=== PATIENT | male | born 1940 | race Caucasian/White ===

== ENCOUNTER 2017-08-31 10:33 | Emergency (ER) ==
[2017-08-31 10:37] VITALS: BP 225/101; TEMP 98; BMI 37.5
[2017-08-31] MEDS ORDERED: TENIVAC IM ONE (10:44)
[2017-08-31] MEDS ORDERED: LIDOCAINE HCL 1% SDV SUBCUT STA (10:44)
[2017-08-31] MEDS ORDERED: KEFLEX PO STA (10:58)
[2017-08-31] MEDS ORDERED: AUGMENTIN 875-125 MG TAB PO STA (10:59)
--- NOTE | 2017-08-31 11:25 | ED.PDOC ---
General ED Provider: Dr. FELIZ CHAHAL-ER Chief Complaint: Bite Stated Complaint: i was bitten by a strange dog Time Seen by Physician: 10:40 Mode of Arrival: Walk-In Information Source: Patient Exam Limitations: No limitations Primary Care Provider: FELIZ CHAHAL Nursing and Triage Documentation Reviewed and Agree: Yes Reviewed sepsis parameters & appropriate labs ordered?: Yes System Inflammatory Response Syndrome: Not Applicable Sepsis Protocol: For patient's 13 years and over: Temp is 96.8 and below OR 101 and greater Pulse >90 BPM Resp >20/minute Acutely Altered Mental Status Are patient's symptoms suggestive of a new infection, such as: -Pneumonia -Skin, Soft Tissue -Endocarditis -UTI -Bone, Joint Infection -Implantable Device -Acute Abdominal Infection -Wound Infection -Meningitis -Blood Stream Catheter Infection -Unknown Skin Complaint Exam - Laceration/Abrasion/Hand Complaint/Exam Location of Injury: Right, Digit #2 Mechanism of Injury: Laceration, Blunt trauma Onset/Duration: one hour Symptoms Are: Still present Initial Severity: Mild Current Severity: Mild Aggravating: Movement Alleviating: Compression Associated Signs and Symptoms: Denies: Fever, Chills, Erythema, Numbness, Tingling Differential Diagnoses: Bite Injury, Laceration, Puncture Wound Review of Systems - Review Of Systems Constitutional: Reports: No symptoms Eyes: Reports: No symptoms Ears, Nose, Mouth, Throat: Reports: No symptoms Respiratory: Reports: No symptoms Cardiac: Reports: No symptoms GI: Reports: No symptoms : Reports: No symptoms Musculoskeletal: Reports: No symptoms Skin: Reports: No symptoms Neurological: Reports: No symptoms Endocrine: Reports: Intolerance to heat Hematologic/Lymphatic: Reports: No symptoms All Other Systems: Reviewed and Negative Past Medical History - Past Medical History Previously Healthy: No Endocrine: Reports: Unknown Cardiovascular: Reports: Unknown Respiratory: Reports: Unknown Hematological: Reports: Unknown Gastrointestinal: Reports: Unknown Genitourinary: Reports: Unknown Neuro/Psych: Reports: Unknown Musculoskeletal: Reports: Unknown Cancer: Reports: Unknown - Surgical History General Surgical History: Reports: Unknown - Family History Family History: Reports: Unknown - Social History Smoking Status: Never smoker Hx Substance Use: No Alcohol Screening: None - Immunizations Tetanus Shot up to Date: No Physical Exam - Physical Exam Appearance: Well-appearing, No pain distress, Well-nourished Pain Distress: Mild Eyes: TOY, EOMI, Conjunctiva clear ENT: Ears normal, Nose normal, Oropharynx normal Neck: Supple Respiratory: Airway patent Cardiovascular: RRR GI/: Soft, Nontender, No masses, Bowel sounds normal, No Organomegaly Musculoskeletal: Normal strength Skin: Warm, Dry, Normal color Neurological: Sensation intact, Motor intact, Reflexes intact, Cranial nerves intact, Alert, Oriented Psychiatric: Affect appropriate, Mood appropriate, Anxious Critical Care Note - Critical Care Note Total Time (mins): 0 Course - Course Orders, Labs, Meds: Orders Category Date Time Status Amoxicillin/Potassium Clav [Augmentin 875-125 mg Tab] MEDS 08/31/17 10:59 Discontinued 1 tab PO ONCE STA Lidocaine HCl/Pf [Lidocaine HCl 1% Sdv] MEDS 08/31/17 10:44 Discontinued 5 ml SUBCUT ONCE STA Rabies Immune Globulin/Pf [Hyperrab S-D 2 ml Vial] MEDS 08/31/17 12:49 Discontinued 300 unit INFIL ONCE STA Rabies Immune Globulin/Pf [Hyperrab S-D 2 ml Vial] MEDS 08/31/17 12:51 Discontinued 300 unit INFIL ONCE STA Rabies Vaccine (Pcec)/Pf [Rabavert Rabies Vaccine] MEDS 08/31/17 12:51 Discontinued 2.5 unit IM .ONCE ONE Tetanus and Diphtheria Tox/Pf [Tenivac] MEDS 08/31/17 10:44 Discontinued 0.5 ml IM .ONCE ONE Medications Discontinued Medications Generic Name Dose Route Start Last Admin Trade Name Freq PRN Reason Stop Dose Admin Amoxicillin/Clavulanate Potassium 1 tab 08/31/17 10:59 08/31/17 11:40 Augmentin 875-125 Mg Tab PO 08/31/17 11:00 1 tab ONCE STA Administration Lidocaine HCl 5 ml 08/31/17 10:44 08/31/17 11:54 Lidocaine Hcl 1% Sdv SUBCUT 08/31/17 10:45 5 ml ONCE STA Administration Rabies Immune Globulin 300 unit 08/31/17 12:49 Hyperrab S-D 2 Ml Vial INFIL 08/31/17 12:50 ONCE STA Rabies Immune Globulin 300 unit 08/31/17 12:51 Hyperrab S-D 2 Ml Vial INFIL 08/31/17 12:52 ONCE STA Rabies Vaccine Inactivated 2.5 unit 08/31/17 12:51 Rabavert Rabies Vaccine IM 08/31/17 12:52 .ONCE ONE Tetanus/Diphtheria Toxoids Adsorbed 0.5 ml 08/31/17 10:44 08/31/17 11:08 Tenivac IM 08/31/17 10:45 0.5 ml .ONCE ONE Administration Vital Signs: Temp Pulse Resp BP Pulse Ox 08/31/17 10:34 98.0 F 69 18 225/101 H 94 L Departure - Departure Time of Disposition: 11:24 Disposition: HOME SELF-CARE Discharge Problem: Dog bite Qualifiers: Encounter type: initial encounter Qualified Code(s): W54.0XXA - Bitten by dog, initial encounter Instructions: Rabies Vaccine (By injection), Rabies Immune Globulin (By injection), Animal Bite (ED), Rabies Vaccine (ED) Condition: Good Pt referred to PMD for follow-up: Yes IPMP verified?: No Additional Instructions: augmentin 875mg bid x 7days--keep wound clean and dry--see me friday for follow up and return here friday for vaccine series and also day 7, day 14 and days 28 Allergies/Adverse Reactions: Allergies No Known Allergies Allergy (Unverified 08/31/17 10:37) Home Medications: Ambulatory Orders Simvastatin [Zocor] 40 mg PO DAILY 08/31/17 Disposition Discussed With: Patient, Family
[2017-08-31] MEDS ORDERED: RABIES IMMUNE GLOBULIN INFIL STA ×2 (12:49→12:51)
[2017-08-31] MEDS ORDERED: [UNRECOGNIZED DRUG - OTHER] IM ONE (12:51)
[2017-08-31] MEDS ORDERED: RABIES VACCINE IM ONE (12:51)
== END 2017-08-31 11:47 | disposition home or self-care (01) ==
LOC: ED 10:33
DX: S61.451A Open bite of right hand, initial encounter (principal); W54.0XXA Bitten by dog, initial encounter
CPT/HCPCS: 90471; 90675; 90714; 96372; 99284

== ENCOUNTER 2017-09-03 10:31 | Outpatient (CLI) ==
[2017-09-03] MEDS ORDERED: [UNRECOGNIZED DRUG - OTHER] IM ONE (10:46)
[2017-09-03] MEDS ORDERED: RABIES VACCINE IM ONE (10:46)
[2017-09-03] MEDS ORDERED: RABIES IMMUNE GLOBULIN IM STA (10:48)
[2017-09-03] MEDS ORDERED: [UNRECOGNIZED DRUG - OTHER] IM STA (10:48)
[2017-09-03 11:05] VITALS: BP 143/76; TEMP 98.2
== END 2017-09-03 11:39 | disposition home or self-care (01) ==
LOC: OPMED 10:31
PROVIDERS: ATTEND Family Medicine
DX: Z20.3 Contact with and (suspected) exposure to rabies (principal)
CPT/HCPCS: 96372

== ENCOUNTER 2017-09-07 12:50 | Outpatient (CLI) ==
[2017-09-07] MEDS ORDERED: RABIES VACCINE IM ONE (13:06)
[2017-09-07] MEDS ORDERED: [UNRECOGNIZED DRUG - OTHER] IM ONE (13:06)
[2017-09-07 13:32] VITALS: BP 154/86; TEMP 98.1
== END 2017-09-07 12:51 | disposition home or self-care (01) ==
LOC: OPMED 12:50
PROVIDERS: ATTEND Family Medicine
DX: Z20.3 Contact with and (suspected) exposure to rabies (principal)
CPT/HCPCS: 96372

== ENCOUNTER 2017-09-14 10:59 | Outpatient (CLI) ==
[2017-09-14] MEDS ORDERED: RABIES VACCINE IM ONE (11:07)
[2017-09-14] MEDS ORDERED: [UNRECOGNIZED DRUG - OTHER] IM ONE (11:07)
== END 2017-09-14 11:00 | disposition home or self-care (01) ==
LOC: OPMED 10:59
PROVIDERS: ATTEND Family Medicine
DX: Z20.3 Contact with and (suspected) exposure to rabies (principal)
CPT/HCPCS: 96372

== ENCOUNTER 2022-07-15 12:28 | Inpatient (IN) ==
[2022-07-15] MEDS ORDERED: DUONEB NEB STA (12:44)
--- NOTE | 2022-07-15 12:47 | ED.PDOC ---
General ED Provider: Dr. PAIGE DOUGLAS MD Chief Complaint: Shortness of Air Stated Complaint: Patient presents with cough productive of some brown colored sputum and dyspnea for several days. Denies fever, chills, chest pain, edema, palpitations. Time Seen by Provider: 07/15/22 12:44 Mode of Arrival: Walk-In Information Source: Patient Primary Care Provider: FELIZ CHAHAL Nursing and Triage Documentation Reviewed and Agree: Yes Does patient meet sepsis criteria?: No System Inflammatory Response Syndrome: Not Applicable Sepsis Protocol: For patient's 13 years and over: Temp is 96.8 and below OR 101 and greater Pulse >90 BPM Resp >20/minute Acutely Altered Mental Status Are patient's symptoms suggestive of a new infection, such as: -Pneumonia -Skin, Soft Tissue -Endocarditis -UTI -Bone, Joint Infection -Implantable Device -Acute Abdominal Infection -Wound Infection -Meningitis -Blood Stream Catheter Infection -Unknown Review of Systems Review Of Systems Constitutional: Reports No symptoms Eyes: Reports No symptoms Ears, Nose, Mouth, Throat: Reports No symptoms Respiratory: Reports Cough, Orthopnea and Short of air Cardiac: Reports No symptoms GI: Reports No symptoms : Reports No symptoms Musculoskeletal: Reports No symptoms Skin: Reports No symptoms Neurological: Reports No symptoms Endocrine: Reports No symptoms Hematologic/Lymphatic: Reports No symptoms All Other Systems: Reviewed and Negative Physical Exam Physical Exam Appearance: Reports Ill-appearing, No pain distress, Obese and Other (Patient is tachypneic and using accessory respiratory muscles.) Ill-appearing: Moderate Pain Distress: None Eyes: Reports Conjunctiva clear ENT: Reports Nose normal and Oropharynx normal Neck: Supple (No JVD) Respiratory: Reports Airway patent, Breath sounds clear, Breath sounds equal and Breath sounds diminished Cardiovascular: Reports RRR, No rub and No murmur GI/: Reports Soft, Nontender, No masses, Bowel sounds normal and No Organomegaly Musculoskeletal: Reports No edema Skin: Reports Warm, Dry and Normal color Neurological: Reports Alert and Oriented Psychiatric: Reports Affect appropriate, Mood appropriate and Anxious Interpretation Radiology Interpretation Radiology Interpretation By: Radiologist Exam Interpreted: Portable CXR (interstitial opacities and ground glass appearance bilaterally, mild cardiomegaly) EKG Interpretation Time of EKG #1: 13:17 Rate: Normal Rhythm: Other (atrial fibrillation) Ectopy: PVCs [place]: NL ST Segment: Normal Interpretation: atrial fibrillation with occasional PVCs Physician Notification Case Discussed Physician Notified: Dr Chahal Time of Notification: 14:26 Comments: Patient will be transferred to [facility] where his outsole molder, Dr Valentin, is located. If no beds available, then patient will be admitted here. Critical Care Note Critical Care Note Total Critical Care Time (mins): 0 Course Course Hematology/Chemistry: 07/15/22 12:56 07/15/22 12:56 Orders, Labs, Meds: Lab Review 07/15/22 07/15/22 07/15/22 12:12 12:52 12:56 WBC 8.45 RBC 3.89 L Hgb 12.6 L Hct 40.8 L MCV 104.9 H MCH 32.4 H MCHC 30.9 L RDW Coeff of Carli 15.3 H Plt Count 177 Immature Gran % (Auto) 0.6 Neut % (Auto) 79.3 H Lymph % (Auto) 9.5 L Colbert % (Auto) 8.2 Eos % (Auto) 1.8 Baso % (Auto) 0.6 Neut # (Auto) 6.7 Lymph # (Auto) 0.8 Colbert # (Auto) 0.7 Eos # (Auto) 0.2 Baso # (Auto) 0.1 Immature Gran # (Auto) 0.1 Puncture Site Rrad Base Excess 5.3 H O2 Saturation 92.2 L ABG pH 7.42 ABG pCO2 46.0 H ABG pO2 63.0 L ABG HCO3 29.8 H ABG Total CO2 31.2 H Tyrell Test Pos Hemoglobin 0.5 Oxyhemoglobin 90.1 L Carboxyhemoglobin 3.0 H Total Hemoglobin 13.4 FiO2 % 21.0 Sodium Potassium Chloride Carbon Dioxide Anion Gap BUN Creatinine Estimated GFR (MDRD) BUN/Creatinine Ratio Glucose Calcium Total Bilirubin AST ALT Alkaline Phosphatase Troponin I NT-Pro-B Natriuret Pep 3180 H Total Protein Albumin Globulin Albumin/Globulin Ratio Influ A Molecular Assay Influ B Molecular Assay SARS CoV-2 RNA Rapid COSMO 07/15/22 07/15/22 07/15/22 12:56 13:25 13:25 WBC RBC Hgb Hct MCV MCH MCHC RDW Coeff of Carli Plt Count Immature Gran % (Auto) Neut % (Auto) Lymph % (Auto) Colbert % (Auto) Eos % (Auto) Baso % (Auto) Neut # (Auto) Lymph # (Auto) Colbert # (Auto) Eos # (Auto) Baso # (Auto) Immature Gran # (Auto) Puncture Site Base Excess O2 Saturation ABG pH ABG pCO2 ABG pO2 ABG HCO3 ABG Total CO2 Tyrell Test Hemoglobin Oxyhemoglobin Carboxyhemoglobin Total Hemoglobin FiO2 % Sodium 141.7 Potassium 3.84 Chloride 107.1 H Carbon Dioxide 29.2 Anion Gap 9.24 BUN 11.9 Creatinine 1.11 H Estimated GFR (MDRD) 64.00 BUN/Creatinine Ratio 10.72 Glucose 121.2 H Calcium 8.68 Total Bilirubin 2.67 H AST 22.5 ALT 17.7 Alkaline Phosphatase 129.4 H Troponin I < 0.012 NT-Pro-B Natriuret Pep Total Protein 7.11 Albumin 4.04 Globulin 3.07 Albumin/Globulin Ratio 1.31 Influ A Molecular Assay Negative by naat Influ B Molecular Assay Negative by naat SARS CoV-2 RNA Rapid COSMO Negative Orders Category Date Time Status ABG DRAW REQUEST Stat CARDIO 07/15/22 12:42 Completed EKG-(ED ONLY) Stat CARDIO 07/15/22 12:42 Completed NEBULIZER TREATMENT Stat CARDIO 07/15/22 12:44 Completed Saline Lock [ED IV/MEDIPORT/POWERPORT] .ONCE EMERGENCY 07/15/22 14:00 Active ABG COOX Stat LAB 07/15/22 12:12 Completed CBC W/ AUTO DIFF Stat LAB 07/15/22 12:56 Completed CMP [COMPREHENSIVE METABOLIC PANEL] Stat LAB 07/15/22 12:56 Completed COVID [SARS COV-2 RNA RAPID COSMO] Stat LAB 07/15/22 13:25 Completed FLU A & B MOLECULAR [FLU A/B MOLECULAR] Stat LAB 07/15/22 13:25 Completed NT-PROBNP(ED) Stat LAB 07/15/22 12:52 Completed TROPONIN I Stat LAB 07/15/22 12:56 Completed 0.9 % Sodium Chloride [Saline Flush] MEDS 07/15/22 14:00 Active 1 syr IVF PRN PRN Furosemide [Lasix] MEDS 07/15/22 14:00 Discontinued 80 mg IVP ONCE STA Ipratropium/Albuterol Neb [Duoneb] MEDS 07/15/22 12:44 Discontinued 3 ml NEB ONCE STA CXR [CHEST, 1V AP ONLY] Stat RADS 07/15/22 12:42 Completed Medications Generic Name Dose Route Start Last Admin Trade Name Freq PRN Reason Stop Dose Admin Sodium Chloride 1 syr 07/15/22 14:00 0.9% Sodium Chloride 10 Ml Disp.Syrin IVF PRN PRN To flush IV Discontinued Medications Generic Name Dose Route Start Last Admin Trade Name Freq PRN Reason Stop Dose Admin Albuterol/Ipratropium 3 ml 07/15/22 12:44 07/15/22 13:00 Ipratropium/Albuterol Vial.Neb NEB 07/15/22 12:45 3 ml ONCE STA Administration Furosemide 80 mg 07/15/22 14:00 07/15/22 14:10 Furosemide Inj 100 Mg/10 Ml Vial IVP 07/15/22 14:01 80 mg ONCE STA Administration Vital Signs: Temp Pulse Resp BP Pulse Ox 07/15/22 12:28 98.4 F 98 22 H 188/48 H 86 L Discharge Plan Discharge Patient Disposition: ADMITTED INPATIENT Discharge Problem: Acute congestive heart failure, Coronary artery disease, Atrial fibrillation, Elevated bilirubin, Elevated alkaline phosphatase level, Macrocytic anemia Prescriptions: No Action simvastatin 40 MG tablet 40 mg PO DAILY Xarelto 20 mg Tablet 20 mg PO DAILY Rx Instructions: must administer with evening meal Did you review [place] [employer] for ALL controlled substances?: Not Applicable ED Provider: PAIGE DOUGLAS Condition: Fair Physician Progress Note: []
[2022-07-15 12:55] LABS: ABG O2 HGB 90.1 % (95-100); ABG PH 7.42 (7.35-7.45); BEecf 5.3 (-2.0-3.0); HCO3 29.8 (21-28); MetHb 0.5 (0-1.5); TCO2 31.2 (19-24); sO2 92.2 % (94-98); tHb 13.4 g/dl (11.7-17.4)
[2022-07-15 13:02] LABS: BASOPHILS # (AUTO) 0.1 K/uL (0-0.2); BASOPHILS % (AUTO) 0.6 % (0.0-3.0); EOSINOPHILS # (AUTO) 0.2 K/ul (0.0-0.7); EOSINOPHILS % (AUTO) 1.8 % (0.0-7.0); HEMATOCRIT 40.8 % (42.0-52.0); HEMOGLOBIN 12.6 g/dl (14.0-18.0); IMMATURE GRANULOCYTE # (AUTO) 0.1 (0.0-1.0); IMMATURE GRANULOCYTE % (AUTO) 0.6 % (0.0-5.0); LYMPHOCYTES # (AUTO) 0.8 K/uL (0.60-3.4); LYMPHOCYTES % (AUTO) 9.5 (10.0-50.0); MEAN CORPUSCULAR HEMOGLOBIN 32.4 pg (27.0-31.0); MEAN CORPUSCULAR HGB CONC 30.9 (31.8-35.4); MEAN CORPUSCULAR VOLUME 104.9 fl (80.0-94.0); MONOCYTES # (AUTO) 0.7 K/uL (0.4-2.0); MONOCYTES % (AUTO) 8.2 (0-10); NEUTROPHILS # (AUTO) 6.7 K/ul (2.0-6.9); NEUTROPHILS % (AUTO) 79.3 % (42.2-75.2); PLATELET COUNT 177 10^3/uL (140-440); RDW COEFFICIENT OF VARIATION 15.3 % (11.6-14.8); RED BLOOD COUNT 3.89 10^6/ul (4.70-6.10); WHITE BLOOD COUNT 8.45 K/ul (4.2-10.2)
--- NOTE | 2022-07-15 13:03 | DI ---
EXAM: SINGLE VIEW OF THE CHEST HISTORY: Dyspnea. COMPARISON: None FINDINGS: Cardiomediastinal silhouette is mildly enlarged. There is no pneumothorax with minimal ubaldo nting. There are interstitial and ground-glass opacities in the lungs. There is no consolidation. There is minimal degenerative change IMPRESSION: Heart is mildly enlarged with interstitial opacities that may represent chronic process versus atypical inflammation versus vascular congestion.
[2022-07-15 13:15] LABS: ALANINE AMINOTRANSFERASE 17.7 U/L (0-50); ALBUMIN 4.04 g/dL (3.5-5.0); ALKALINE PHOSPHATASE 129.4 U/L (56-119); ASPARTATE AMINO TRANSFERASE 22.5 U/L (17-59); BILIRUBIN,TOTAL 2.67 mg/dL (0.2-1.3); BLOOD UREA NITROGEN 11.9 mg/dL (9-20); CALCIUM 8.68 mg/dL (8.4-10.2); CARBON DIOXIDE 29.2 mmol/L (22-30.0); CHLORIDE 107.1 mmol/L (98-107); CREATININE 1.11 mg/dL (0.60-1.10); GLUCOSE 121.2 mg/dL (74-106); POTASSIUM 3.84 mmol/L (3.5-5.1); SODIUM 141.7 mmol/L (134.5-145); TOTAL PROTEIN 7.11 g/dL (6.3-8.2)
[2022-07-15 13:30] LABS: TROPONIN I < 0.012 ng/ml (0.0000-0.120)
[2022-07-15 13:56] LABS: MOLECULAR FLU A NEGATIVE BY NAAT (NEGATIVE); MOLECULAR FLU B NEGATIVE BY NAAT (NEGATIVE)
[2022-07-15] MEDS ORDERED: LASIX IVP STA (14:00)
[2022-07-15 14:18] LABS: SARS COV-2 RNA RAPID NAAT NEGATIVE (NEGATIVE)
--- NOTE | 2022-07-15 15:01 | PCM ---
Chief Complaint Chief Complaint: dyspnea History of Present Illness History of Present Illness: Patient presented with worsening dyspnea for several days. Workup proved acute congestive heart failure. He is admitted at this time for diuresis and further evaluation. Review of Systems Constitutional: Reports No symptoms Eyes: Reports No symptoms Ears: Reports No symptoms Nose: Reports No symptoms Throat: Reports No symptoms Mouth: Reports No symptoms Respiratory: Reports Shortness of air Cardiovascular: Reports Orthopnea Gastrointestinal: Reports No symptoms Genitourinary: Reports No symptoms Neurological: Reports No symptoms Musculoskeletal: Reports No symptoms Skin: Reports No symptoms Immunology: Reports No symptoms Hematology: Reports No symptoms Endocrine: Reports No symptoms Psychiatric: Reports No symptoms Habits: Denies Tobacco use, Substance use, Alcohol use or Other Allergies Allergies Allergy/AdvReac Type Severity Reaction Status Date / Time No Known Allergies Allergy Verified 07/15/22 12:35 Medications Medications: Medications Generic Name Dose Route Start Last Admin Trade Name Freq PRN Reason Stop Dose Admin Sodium Chloride 1 syr 07/15/22 14:00 0.9% Sodium Chloride 10 Ml Disp.Syrin IVF PRN PRN To flush IV Body Composition Height: 5 ft 7 in Weight: 106.594 kg Body Mass Index (BMI): 36.8 Vital Signs Temperature: 98.4 F Pulse Rate: 98 Respiratory Rate: 22 Blood Pressure: 188/48 O2 Sat by Pulse Oximetry: 86 Physical Examination Appearance: Reports Ill-appearing, No pain distress, Obese and Other (Patient is moderately tachypneic and using accesory respiratory muscles.) Ill-appearing: Moderate Pain Distress: None Eyes: Reports Conjunctiva clear ENT: Reports Nose normal and Oropharynx normal Neck: Supple Respiratory: Reports Airway patent, Breath sounds clear and Breath sounds equal Cardiovascular: Reports No rub, No murmur and Irregular rhythm (98bpm) GI/: Reports Soft, Nontender, No masses, Bowel sounds normal and No Organomegaly Musculoskeletal: Reports Normal strength, ROM intact and Edema (Mild edema bilaterally to the knees.) Skin: Reports Warm, Dry and Normal color Neurological: Reports Sensation intact, Motor intact, Alert and Oriented Psychiatric: Reports Affect appropriate, Mood appropriate and Anxious Lab/Tests/Diagnostic Imaging Lab/Tests/Diagnostic Imaging: Lab Review 07/15/22 07/15/22 07/15/22 12:12 12:52 12:56 WBC 8.45 RBC 3.89 L Hgb 12.6 L Hct 40.8 L MCV 104.9 H MCH 32.4 H MCHC 30.9 L RDW Coeff of Carli 15.3 H Plt Count 177 Immature Gran % (Auto) 0.6 Neut % (Auto) 79.3 H Lymph % (Auto) 9.5 L Clarke % (Auto) 8.2 Eos % (Auto) 1.8 Baso % (Auto) 0.6 Neut # (Auto) 6.7 Lymph # (Auto) 0.8 Clarke # (Auto) 0.7 Eos # (Auto) 0.2 Baso # (Auto) 0.1 Immature Gran # (Auto) 0.1 Puncture Site Rrad Base Excess 5.3 H O2 Saturation 92.2 L ABG pH 7.42 ABG pCO2 46.0 H ABG pO2 63.0 L ABG HCO3 29.8 H ABG Total CO2 31.2 H Tyrell Test Pos Hemoglobin 0.5 Oxyhemoglobin 90.1 L Carboxyhemoglobin 3.0 H Total Hemoglobin 13.4 FiO2 % 21.0 Sodium Potassium Chloride Carbon Dioxide Anion Gap BUN Creatinine Estimated GFR (MDRD) BUN/Creatinine Ratio Glucose Calcium Total Bilirubin AST ALT Alkaline Phosphatase Troponin I NT-Pro-B Natriuret Pep 3180 H Total Protein Albumin Globulin Albumin/Globulin Ratio Influ A Molecular Assay Influ B Molecular Assay SARS CoV-2 RNA Rapid COSMO 07/15/22 07/15/22 07/15/22 12:56 13:25 13:25 WBC RBC Hgb Hct MCV MCH MCHC RDW Coeff of Carli Plt Count Immature Gran % (Auto) Neut % (Auto) Lymph % (Auto) Clarke % (Auto) Eos % (Auto) Baso % (Auto) Neut # (Auto) Lymph # (Auto) Clarke # (Auto) Eos # (Auto) Baso # (Auto) Immature Gran # (Auto) Puncture Site Base Excess O2 Saturation ABG pH ABG pCO2 ABG pO2 ABG HCO3 ABG Total CO2 Tyrell Test Hemoglobin Oxyhemoglobin Carboxyhemoglobin Total Hemoglobin FiO2 % Sodium 141.7 Potassium 3.84 Chloride 107.1 H Carbon Dioxide 29.2 Anion Gap 9.24 BUN 11.9 Creatinine 1.11 H Estimated GFR (MDRD) 64.00 BUN/Creatinine Ratio 10.72 Glucose 121.2 H Calcium 8.68 Total Bilirubin 2.67 H AST 22.5 ALT 17.7 Alkaline Phosphatase 129.4 H Troponin I < 0.012 NT-Pro-B Natriuret Pep Total Protein 7.11 Albumin 4.04 Globulin 3.07 Albumin/Globulin Ratio 1.31 Influ A Molecular Assay Negative by naat Influ B Molecular Assay Negative by naat SARS CoV-2 RNA Rapid COSMO Negative Orders Category Date Time Status ABG DRAW REQUEST Stat CARDIO 07/15/22 12:42 Completed EKG-(ED ONLY) Stat CARDIO 07/15/22 12:42 Completed NEBULIZER TREATMENT Stat CARDIO 07/15/22 12:44 Completed Saline Lock [ED IV/MEDIPORT/POWERPORT] .ONCE EMERGENCY 07/15/22 14:00 Active ABG COOX Stat LAB 07/15/22 12:12 Completed CBC W/ AUTO DIFF Stat LAB 07/15/22 12:56 Completed CMP [COMPREHENSIVE METABOLIC PANEL] Stat LAB 07/15/22 12:56 Completed COVID [SARS COV-2 RNA RAPID COSMO] Stat LAB 07/15/22 13:25 Completed FLU A & B MOLECULAR [FLU A/B MOLECULAR] Stat LAB 07/15/22 13:25 Completed NT-PROBNP(ED) Stat LAB 07/15/22 12:52 Completed TROPONIN I Stat LAB 07/15/22 12:56 Completed 0.9 % Sodium Chloride [Saline Flush] MEDS 07/15/22 14:00 Active 1 syr IVF PRN PRN Furosemide [Lasix] MEDS 07/15/22 14:00 Discontinued 80 mg IVP ONCE STA Ipratropium/Albuterol Neb [Duoneb] MEDS 07/15/22 12:44 Discontinued 3 ml NEB ONCE STA CXR [CHEST, 1V AP ONLY] Stat RADS 07/15/22 12:42 Completed Medications Generic Name Dose Route Start Last Admin Trade Name Freq PRN Reason Stop Dose Admin Sodium Chloride 1 syr 07/15/22 14:00 0.9% Sodium Chloride 10 Ml Disp.Syrin IVF PRN PRN To flush IV Discontinued Medications Generic Name Dose Route Start Last Admin Trade Name Freq PRN Reason Stop Dose Admin Albuterol/Ipratropium 3 ml 07/15/22 12:44 07/15/22 13:00 Ipratropium/Albuterol Vial.Neb NEB 07/15/22 12:45 3 ml ONCE STA Administration Furosemide 80 mg 07/15/22 14:00 07/15/22 14:10 Furosemide Inj 100 Mg/10 Ml Vial IVP 07/15/22 14:01 80 mg ONCE STA Administration Assessment (1) Acute congestive heart failure: Status: Acute Code(s): I50.9 - Heart failure, unspecified SNOMED Code(s): 90560890 (2) Coronary artery disease: Status: Acute Code(s): I25.10 - Atherosclerotic heart disease of eek coronary artery without angina pectoris SNOMED Code(s): 32071843 (3) Atrial fibrillation: Status: Acute Code(s): I48.91 - Unspecified atrial fibrillation SNOMED Code(s): 57100937 (4) Elevated bilirubin: Status: Acute Code(s): R17 - Unspecified jaundice SNOMED Code(s): 03470909 (5) Elevated alkaline phosphatase level: Status: Acute Code(s): R74.8 - Abnormal levels of other serum enzymes SNOMED Code(s): 057381818 (6) Macrocytic anemia: Status: Acute Code(s): D53.9 - Nutritional anemia, unspecified SNOMED Code(s): 64967886 Plan Plan: Patient will be admitted for diuresis and further evaluation of his acute CHF. Dr Rock will be consulted.
[2022-07-15] MEDS ORDERED: COREG PO SCH (15:30)
[2022-07-15 16:00] VITALS: BMI 34.5
--- NOTE | 2022-07-15 16:11 | US ---
EXAM: ABDOMINAL ULTRASOUND LIMITED HISTORY: Elevated bilirubin and alkaline phosphatase COMPARISON: None TECHNIQUE: Sonographic and limited Doppler evaluation of the right upper quadrant was performed. FINDINGS: The liver is increased in echogenicity and measures 16.3 cm. The portal vein is patent. The gallbladder demonstrates no stones or sludge. The gallbladder wall measures 0.3 cm in thickness. Common bile duct is unremarkable and measures 0.4 cm in diameter. The pancreas is unremarkable in appearance. Right kidney is unremarkable in appearance with a low attenuation cyst present IMPRESSION: Increased echogenicity of the liver suggestive of hepatic steatosis. Right renal cyst.
[2022-07-15] MEDS: LASIX IVP SCH (17:20)
[2022-07-15] MEDS ORDERED: ZESTRIL PO SCH (21:00)
[2022-07-16 05:13] LABS: BASOPHILS % (AUTO) 0.5 % (0.0-3.0); EOSINOPHILS # (AUTO) 0.2 K/ul (0.0-0.7); EOSINOPHILS % (AUTO) 2.6 % (0.0-7.0); HEMATOCRIT 42.4 % (42.0-52.0); IMMATURE GRANULOCYTE % (AUTO) 0.4 % (0.0-5.0); LYMPHOCYTES # (AUTO) 0.9 K/uL (0.60-3.4); LYMPHOCYTES % (AUTO) 10.9 (10.0-50.0); MEAN CORPUSCULAR HEMOGLOBIN 32.1 pg (27.0-31.0); MEAN CORPUSCULAR HGB CONC 30.7 (31.8-35.4); MEAN CORPUSCULAR VOLUME 104.7 fl (80.0-94.0); MONOCYTES # (AUTO) 0.9 K/uL (0.4-2.0); MONOCYTES % (AUTO) 10.2 (0-10); NEUTROPHILS # (AUTO) 6.3 K/ul (2.0-6.9); NEUTROPHILS % (AUTO) 75.4 % (42.2-75.2); PLATELET COUNT 176 10^3/uL (140-440); RDW COEFFICIENT OF VARIATION 15.3 % (11.6-14.8); RED BLOOD COUNT 4.05 10^6/ul (4.70-6.10); WHITE BLOOD COUNT 8.34 K/ul (4.2-10.2)
[2022-07-16 05:30] LABS: ALANINE AMINOTRANSFERASE 15.5 U/L (0-50); ALKALINE PHOSPHATASE 126.9 U/L (56-119); ASPARTATE AMINO TRANSFERASE 21.1 U/L (17-59); BILIRUBIN,TOTAL 2.83 mg/dL (0.2-1.3); BLOOD UREA NITROGEN 14.8 mg/dL (9-20); CALCIUM 8.65 mg/dL (8.4-10.2); CARBON DIOXIDE 35.1 mmol/L (22-30.0); CHLORIDE 102.9 mmol/L (98-107); CHOLESTEROL 81.7 mg/dL (0-200); CREATININE 1.23 mg/dL (0.60-1.10); HDL CHOLESTEROL 20.3 mg/dL (35-60); POTASSIUM 3.35 mmol/L (3.5-5.1); TOTAL PROTEIN 6.95 g/dL (6.3-8.2); TRIGLYCERIDES 81.6 mg/dL (0-150)
[2022-07-16 05:32] LABS: ALBUMIN 3.9 g/dL (3.5-5.0)
[2022-07-16] MEDS ORDERED: CATAPRES ONE (05:32)
[2022-07-16] MEDS: LASIX IVP SCH (05:34)
[2022-07-16] MEDS: CATAPRES PO SCH ×4 (05:34→20:36)
--- NOTE | 2022-07-16 09:06 | PCM.PROG ---
Attending Provider: ATTENDING PROVIDER: Dr. PAIGE DOUGLAS MD This patient is seen with Cherry Pickett, Nurse Practitioner. DATE OF SERVICE: 07/16/22 SUBJECTIVE: This 81 year old /WHITE M was hospitalized 07/15/22. Resting comfortably with over 4 liters out after Lasix 80mg IV yesterday in ER. Shortn ess of breath better, still requiring oxygen. Does not require oxygen at home. Atrial fibrillation since 2004, denies any other cardiac history. REVIEW OF SYSTEMS: CONSTITUTIONAL: No night sweats. No fatigue, malaise, lethargy. No fever or chills. HEENT: Eyes: No visual changes. No eye pain. No eye discharge. ENT: No runny nose. No epistaxis. No sinus pain. No odynophagia. No congestion. RESPIRATORY: No cough, no congestion. No hemoptysis. Shortness of breath. CARDIOVASCULAR: No angina symptoms. No CHF symptoms. No atypical chest pain for CAD. Palpitations. No orthopnea.. GASTROINTESTINAL: No abdominal pain. No nausea or vomiting. No diarrhea or constipation. No hematemesis. No hematochezia. Obesity. GENITOURINARY: No urgency. No frequency. No dysuria. No hematuria. No obstructive symptoms. No discharge. No pain. No significant abnormal bleeding. MUSCULOSKELETAL: No musculoskeletal pain; no joint swelling. NEUROLOGICAL: Awake, alert, oriented to time, place and person. No headache. No neck pain. No syncope. No seizures. No dizziness. PSYCHIATRIC: Not anxious. No depression. No suicidal thoughts. No homicidal thoughts. SKIN: No rash. No lesions. No wounds. ENDOCRINE: No unexplained weight loss. No weight gain. HEMATOLOGIC/LYMPHATIC: No anemia. No purpura. No petechiae. No prolonged or excessive bleeding. No palpable lymph nodes. SOCIAL HISTORY: Non-smoker. Denies alcohol or illicit drug use. PAST MEDICAL HISTORY: Dyslipidemia Atrial fibrillation Hypertension Obesity History of tick fever 2004 PHYSICAL EXAMINATION: GENERAL: The patient is awake, alert and oriented, sitting in bed in no distress. VITAL SIGNS: Temperature 97.1 F, Pulse 81, Respiratory Rate 19, BP 150/90, Pulse Ox 96% HEENT: Head normocephalic, atraumatic. Eyes: Extraocular muscles are intact. Pupils are equal, round and reactive to light and accommodation. Ears: No lesions. Nose appeared normal. Throat: No exudate or erythema. NECK: Supple. No JVD, no carotid bruit. No lymphadenopathy or thyromegaly. LUNGS: Diminished breath sounds. Clear to auscultation. Percussion note normal. Chest symmetrical. HEART: Irregular heart rate. S1, S2, no S3. No murmurs. No cyanosis or clu bbing. No ascites. Pulses: Dorsalis pedis and posterior tibial pulses +1 to +2 both sides. ABDOMEN: Abdominal obesity. Soft. Non-tender. Bowel sounds active. No CVA tenderness. No mass felt. EXTREMITIES: Trace pedal edema. Full range of motion of all extremities, equal. NEUROLOGIC: No focal deficit. Cranial nerves II through XII are grossly intact. No headache. No double vision. SKIN: Not dry. Intact. Turgor-normal. LYMPHATIC: No palpable lymph nodes/no lymphedema. MUSCULOSKELETAL: Normal joints with no swelling. Muscle tone is normal. LAB REVIEW: 07/16/22 04:54 07/16/22 04:54 07/16/22 04:54: Sodium 143.0, Potassium 3.35 L, Chloride 102.9, Carbon Dioxide 35.1 H, Anion Gap 8.35, BUN 14.8, Creatinine 1.23 H, Estimated GFR (MDRD) 56.00, BUN/Creatinine Ratio 12.03, Glucose 97.0, Calcium 8.65, Total Bilirubin 2.83 H, AST 21.1, ALT 15.5, Alkaline Phosphatase 126.9 H, Total Protein 6.95, Albumin 3.90, Globulin 3.05, Albumin/Globulin Ratio 1.27, Triglycerides 81.6, Cholesterol 81.7, LDL Cholesterol, Calc 45, VLDL Cholesterol 16, HDL Cholesterol 20.3 L, Cholesterol/HDL Ratio 4.0 L 07/16/22 04:54: WBC 8.34, RBC 4.05 L, Hgb 13.0 L, Hct 42.4, MCV 104.7 H, MCH 32.1 H, MCHC 30.7 L, RDW Coeff of Carli 15.3 H, Plt Count 176, Immature Gran % (Auto) 0.4, Neut % (Auto) 75.4 H, Lymph % (Auto) 10.9, [place] % (Auto) 10.2 H, Eos % (Auto) 2.6, Baso % (Auto) 0.5, Neut # (Auto) 6.3, Lymph # (Auto) 0.9, [place] # (Auto) 0.9, Eos # (Auto) 0.2, Baso # (Auto) 0.0, Immature Gran # (Auto) 0.0 07/15/22 16:40: TSH 3.350 07/15/22 16:40: Free T4 1.28 07/15/22 16:40: Vitamin B12 247 07/15/22 16:40: Folate 8.94 07/15/22 13:25: Influ A Molecular Assay Negative by naat, Influ B Molecular Assa y Negative by naat 07/15/22 13:25: SARS CoV-2 RNA Rapid COSMO Negative 07/15/22 12:56: Sodium 141.7, Potassium 3.84, Chloride 107.1 H, Carbon Dioxide 29.2, Anion Gap 9.24, BUN 11.9, Creatinine 1.11 H, Estimated GFR (MDRD) 64.00, BUN/Creatinine Ratio 10.72, Glucose 121.2 H, Calcium 8.68, Total Bilirubin 2.67 H, AST 22.5, ALT 17.7, Alkaline Phosphatase 129.4 H, Troponin I < 0.012, Total Protein 7.11, Albumin 4.04, Globulin 3.07, Albumin/Globulin Ratio 1.31 07/15/22 12:56: WBC 8.45, RBC 3.89 L, Hgb 12.6 L, Hct 40.8 L, MCV 104.9 H, MCH 32.4 H, MCHC 30.9 L, RDW Coeff of Carli 15.3 H, Plt Count 177, Immature Gran % (Auto) 0.6, Neut % (Auto) 79.3 H, Lymph % (Auto) 9.5 L, [place] % (Auto) 8.2, Eos % (Auto) 1.8, Baso % (Auto) 0.6, Neut # (Auto) 6.7, Lymph # (Auto) 0.8, [place] # (Auto) 0.7, Eos # (Auto) 0.2, Baso # (Auto) 0.1, Immature Gran # (Auto) 0.1 07/15/22 12:52: NT-Pro-B Natriuret Pep 3180 H 07/15/22 12:12: Puncture Site Rrad, Base Excess 5.3 H, O2 Saturation 92.2 L, ABG pH 7.42, ABG pCO2 46.0 H, ABG pO2 63.0 L, ABG HCO3 29.8 H, ABG Total CO2 31.2 H, Tyrell Test Pos, Hemoglobin 0.5, Oxyhemoglobin 90.1 L, Carboxyhemoglobin 3.0 H, Total Hemoglobin 13.4, FiO2 % 21.0 ASSESSMENT: Please see below. 1. Acute CHF 2. Atrial fibrillation 3. Hypokalemia 4. Hypertension 5. Obesity 6. BMI 34 7. Family history of CAD PLAN: 1. 2D echo 2. Lasix 40mg PO daily starting tomorrow 3. Norvasc 5 at night 4. PFT tomorrow 5. 20meq Potassium BID 6. We will get copy of latest office visit and echo from [facility]. The patient sees Dr. Quinonez yearly for atrial fibrillation 7. Continue to monitor I&O and daily weight 8. Lipid A1c Plan and coordination of the patient's care discussed in the presence of Reference Library Assistant and nurse. SCRIBED BY: Donna CALIX scribed while in presence of service performed by Cherry Pickett APRN on 07/16/22 ([id number])
[2022-07-16] MEDS: K-DUR PO SCH ×2 (09:41→16:55)
[2022-07-16] MEDS: ACCUPRIL PO SCH ×2 (09:41→20:36)
[2022-07-16] MEDS: ZYLOPRIM PO SCH (09:41)
[2022-07-16] MEDS: COREG PO SCH ×2 (09:42→16:58)
--- NOTE | 2022-07-16 16:21 | PCM.PROG ---
Date Seen by Provider: 07/16/22 Time Seen by Provider: 12:00 Subjective: Patient is an 81 year old male who was admitted last night for symptoms of shortness of breath and diagnosed with New onset CHF. He was given 40mg of lasix x 1 and now feels better cardiology has been consulted. Patient admits that he lke to use salt in his foot. Objective: Vitals: T=97.7 F, P=85, R=16, DE=234/71, SPO2=95 HEENT: [Mucus membranes moist] Neck: [supple ] Lungs: [Clinically clear] CVS: [Regular S1 and S 2 ] Abdomen: [obese non tender ] Extremities: [No Edema ] Neurological: [Awake and alert no focal deficites] Skin: [warm and Dry no skin lesions] Lab/Tests/Diagnostic Imaging: [ Laboratory Results - last 24 hr 07/15/22 07/15/22 07/15/22 16:40 16:40 16:40 WBC RBC Hgb Hct MCV MCH MCHC RDW Coeff of Carli Plt Count Immature Gran % (Auto) Neut % (Auto) Lymph % (Auto) [place] % (Auto) Eos % (Auto) Baso % (Auto) Neut # (Auto) Lymph # (Auto) [place] # (Auto) Eos # (Auto) Baso # (Auto) Immature Gran # (Auto) Sodium Potassium Chloride Carbon Dioxide Anion Gap BUN Creatinine Estimated GFR (MDRD) BUN/Creatinine Ratio Glucose Hemoglobin A1c Calcium Total Bilirubin AST ALT Alkaline Phosphatase Total Protein Albumin Globulin Albumin/Globulin Ratio Triglycerides Cholesterol LDL Cholesterol, Calc VLDL Cholesterol HDL Cholesterol Cholesterol/HDL Ratio Vitamin B12 247 Folate 8.94 TSH Free T4 1.28 07/15/22 07/16/22 07/16/22 16:40 04:54 04:54 WBC 8.34 RBC 4.05 L Hgb 13.0 L Hct 42.4 MCV 104.7 H MCH 32.1 H MCHC 30.7 L RDW Coeff of Carli 15.3 H Plt Count 176 Immature Gran % (Auto) 0.4 Neut % (Auto) 75.4 H Lymph % (Auto) 10.9 [place] % (Auto) 10.2 H Eos % (Auto) 2.6 Baso % (Auto) 0.5 Neut # (Auto) 6.3 Lymph # (Auto) 0.9 [place] # (Auto) 0.9 Eos # (Auto) 0.2 Baso # (Auto) 0.0 Immature Gran # (Auto) 0.0 Sodium 143.0 Potassium 3.35 L Chloride 102.9 Carbon Dioxide 35.1 H Anion Gap 8.35 BUN 14.8 Creatinine 1.23 H Estimated GFR (MDRD) 56.00 BUN/Creatinine Ratio 12.03 Glucose 97.0 Hemoglobin A1c Calcium 8.65 Total Bilirubin 2.83 H AST 21.1 ALT 15.5 Alkaline Phosphatase 126.9 H Total Protein 6.95 Albumin 3.90 Globulin 3.05 Albumin/Globulin Ratio 1.27 Triglycerides 81.6 Cholesterol 81.7 LDL Cholesterol, Calc 45 VLDL Cholesterol 16 HDL Cholesterol 20.3 L Cholesterol/HDL Ratio 4.0 L Vitamin B12 Folate TSH 3.350 Free T4 07/16/22 04:54 WBC RBC Hgb Hct MCV MCH MCHC RDW Coeff of Carli Plt Count Immature Gran % (Auto) Neut % (Auto) Lymph % (Auto) [place] % (Auto) Eos % (Auto) Baso % (Auto) Neut # (Auto) Lymph # (Auto) [place] # (Auto) Eos # (Auto) Baso # (Auto) Immature Gran # (Auto) Sodium Potassium Chloride Carbon Dioxide Anion Gap BUN Creatinine Estimated GFR (MDRD) BUN/Creatinine Ratio Glucose Hemoglobin A1c 5.37 Calcium Total Bilirubin AST ALT Alkaline Phosphatase Total Protein Albumin Globulin Albumin/Globulin Ratio Triglycerides Cholesterol LDL Cholesterol, Calc VLDL Cholesterol HDL Cholesterol Cholesterol/HDL Ratio Vitamin B12 Folate TSH Free T4 ] (1) Acute congestive heart failure: Status: Acute Code(s): I50.9 - Heart failure, unspecified SNOMED Code(s): 86718817 Assessment: Feels better after IV lasix now on Po lasix with Repalcement of K Also on DAMON and Coreg (2) Atrial fibrillation: Status: Acute Code(s): I48.91 - Unspecified atrial fibrillation SNOMED Code(s): 86274457 (3) Coronary artery disease: Status: Acute Code(s): I25.10 - Atherosclerotic heart disease of [place] coronary artery without angina pectoris SNOMED Code(s): 04024556 (4) Hypertension: Status: Acute Code(s): I10 - Essential (primary) hypertension SNOMED Code(s): 37600009 Assessment: Blood pressure was elevated yesterday but better after Addition of Amlodipine. Plan: Appreciate cardiology in put. has orders for Echo and PFTS and medication changes.
[2022-07-16] MEDS: XARELTO PO SCH (16:55)
[2022-07-16] MEDS ORDERED: NORVASC PO SCH (21:00)
[2022-07-17 05:18] LABS: BASOPHILS # (AUTO) 0.1 K/uL (0-0.2); BASOPHILS % (AUTO) 0.6 % (0.0-3.0); EOSINOPHILS # (AUTO) 0.3 K/ul (0.0-0.7); EOSINOPHILS % (AUTO) 3.3 % (0.0-7.0); HEMATOCRIT 42.8 % (42.0-52.0); IMMATURE GRANULOCYTE # (AUTO) 0.1 (0.0-1.0); IMMATURE GRANULOCYTE % (AUTO) 0.7 % (0.0-5.0); LYMPHOCYTES # (AUTO) 1.5 K/uL (0.60-3.4); MEAN CORPUSCULAR HEMOGLOBIN 32.1 pg (27.0-31.0); MEAN CORPUSCULAR HGB CONC 30.4 (31.8-35.4); MEAN CORPUSCULAR VOLUME 105.7 fl (80.0-94.0); MONOCYTES # (AUTO) 0.9 K/uL (0.4-2.0); MONOCYTES % (AUTO) 11.1 (0-10); NEUTROPHILS # (AUTO) 5.6 K/ul (2.0-6.9); NEUTROPHILS % (AUTO) 66.3 % (42.2-75.2); PLATELET COUNT 180 10^3/uL (140-440); RDW COEFFICIENT OF VARIATION 15.2 % (11.6-14.8); RED BLOOD COUNT 4.05 10^6/ul (4.70-6.10); WHITE BLOOD COUNT 8.46 K/ul (4.2-10.2)
[2022-07-17 05:33] LABS: ALANINE AMINOTRANSFERASE 16.5 U/L (0-50); ALBUMIN 3.83 g/dL (3.5-5.0); ALKALINE PHOSPHATASE 121.6 U/L (56-119); ASPARTATE AMINO TRANSFERASE 23.2 U/L (17-59); BILIRUBIN,TOTAL 2.21 mg/dL (0.2-1.3); CALCIUM 8.66 mg/dL (8.4-10.2); CARBON DIOXIDE 35.5 mmol/L (22-30.0); CHLORIDE 101.5 mmol/L (98-107); CREATININE 1.16 mg/dL (0.60-1.10); GLUCOSE 107.7 mg/dL (74-106); HDL CHOLESTEROL 22.3 mg/dL (35-60); POTASSIUM 3.53 mmol/L (3.5-5.1); SODIUM 140.8 mmol/L (134.5-145); TOTAL PROTEIN 6.78 g/dL (6.3-8.2); TRIGLYCERIDES 80.1 mg/dL (0-150)
[2022-07-17] MEDS ORDERED: LASIX TAB PO SCH (06:30)
--- NOTE | 2022-07-17 07:23 | ECHO2D ---
Date of Exam: 07/16/2022 Ordering Physician: HOSPITALIST/ T[facility] Room #: 105 Reason for Echo: SOB, A-FIB, CAD, ACUTE CHF, HYPERTENSION M-Mode Normal Adult Results LV Dimensions Normal Adult Results AoV Opening excursions >1.6 >1.6 LVEDD-base- 3.5-5.8 5.5 Ao root dimensions 2.0-3.7 3.3 LVESD-base- 3.1-4.6 L. Atrium dimensions 1.9-3.8 5.7 Post. Wall thickness 0.8-1.1 1.3 IV septum (thickness) 0.7-1.2 1.4 Post. Wall excursion 0.72-1.3 NORMAL Septal motion NORMAL Systolic motion R. Ventricular cavity 1.5-2.0 4.5 LVEF 60% 53% Paradoxical septal wall motion NORMAL 2-D : ENLARGED RIGHT VENTRICLE CAVITY, LEFT ATRIAL CAVITIES, BORDERLINE LEFT VENTRICLE CAVITY--NORMAL VALVES--NO EFFUSION, NO THROMBUS M-MODE: MV: NORMAL AV: NORMAL TV: NORMAL PV: CHAMBER SIZE: ENLARGED RIGHT VENTRICLE AND LEFT ATRIAL CAVITIES--BORDERLINE LEFT VENTRICLE CAVITY WALL MOTION: NORMAL PERICARDIUM: NORMAL INTERPRETATION: 1. LEFT VENTRICLE HYPERTROPHY WITH ENLARGED LEFT ATRIAL CAVITY 2. ENLARGED RIGHT VENTRICLE CAVITY--BORDERLINE LEFT VENTRICLE CAVITY 3. NORMAL VALVES 4. LEFT VENTRICLE CONTRACTILITY--NEAR NORMAL 50 TO 55% MTDD
--- NOTE | 2022-07-17 08:58 | PCM.PROG ---
Date Seen by Provider: 07/17/22 Time Seen by Provider: 08:56 Subjective: Patient slept well. Ambulating. Denies dyspnea. Objective: Vitals: T=98 F, P=63, R=18, ZN=202/82, SPO2=98 Alert, breathing without any distress. Weight down 12lbs since admission. HEENT: [] Neck: [] No JVD. Lungs: [] Clear. BS equal CVS: [] Peripheral edema nearly resolved. Abdomen: [] Soft, nontender. Extremities: [] Neurological: [] Skin: [] Lab/Tests/Diagnostic Imaging: [] (1) Acute congestive heart failure: Status: Acute Code(s): I50.9 - Heart failure, unspecified SNOMED Code(s): 81005821 Assessment: echocardiogram with EF of 50-55% (2) Atrial fibrillation: Status: Acute Code(s): I48.91 - Unspecified atrial fibrillation SNOMED Code(s): 45248479 (3) Coronary artery disease: Status: Acute Code(s): I25.10 - Atherosclerotic heart disease of [place] coronary artery without angina pectoris SNOMED Code(s): 62178396 (4) Hypertension: Status: Acute Code(s): I10 - Essential (primary) hypertension SNOMED Code(s): 24038927 Plan: Patient has made excellent progress. Believe that patient can be discharged today if OK with Dr Rock.
--- NOTE | 2022-07-17 09:18 | PCM.DC ---
Final Diagnosis: acute congestive heart failure Physical Exam Appearance: Well-appearing, No pain distress, Well-nourished and Other (Patient is breathing without any distress.) Ill-appearing: None Pain Distress: None Eyes: TOY, EOMI and Conjunctiva clear ENT: Nose normal and Oropharynx normal Neck: Supple (no JVD) Respiratory: Airway patent, Breath sounds clear and Breath sounds equal Cardiovascular: RRR, No rub, No murmur and Other (Peripheral edema negligible.) GI/: Soft, Nontender, No masses and Bowel sounds normal Musculoskeletal: Normal strength, ROM intact and No edema Skin: Warm, Dry and Normal color Neurological: Alert and Oriented Psychiatric: Affect appropriate and Mood appropriate (1) Acute congestive heart failure: Status: Acute Code(s): I50.9 - Heart failure, unspecified SNOMED Code(s): 32462521 (2) Atrial fibrillation: Status: Acute Code(s): I48.91 - Unspecified atrial fibrillation SNOMED Code(s): 36233496 (3) Coronary artery disease: Status: Acute Code(s): I25.10 - Atherosclerotic heart disease of [place] coronary artery without angina pectoris SNOMED Code(s): 17322411 (4) Hypertension: Status: Acute Code(s): I10 - Essential (primary) hypertension SNOMED Code(s): 09922240 Reason for Hospitalization: acute CHF Prognosis/Condition at Discharge: Condition at discharge was good. Medications at Discharge: Patient discharged on same admission medications in addition to lasix. Education Provided to Patient and Family: congestive heart failure Follow-ups: Follow up with your primary care provider in one week. Discharge Disposition: Home Hospital Course: Patient admitted with acute CHF and dyspnea. He underwent diuresis and his weight was down 12 pounds at discharge. He was breathing without difficulty. Plan: Discharge to home.
[2022-07-17] MEDS: ZYLOPRIM PO SCH (09:28)
[2022-07-17] MEDS: ACCUPRIL PO SCH (09:28)
[2022-07-17] MEDS: CATAPRES PO SCH ×2 (09:28→15:34)
[2022-07-17] MEDS: COREG PO SCH ×2 (09:29→17:09)
[2022-07-17] MEDS: K-DUR PO SCH ×2 (09:29→17:09)
[2022-07-17 12:42] LABS: ABG O2 HGB 87.6 % (95-100); ABG PH 7.45 (7.35-7.45); BEecf 13.5 (-2.0-3.0); COHb 2.7 (0.5-1.5); HCO3 37.5 (21-28); MetHb 1.1 (0-1.5); TCO2 39.2 (19-24); sO2 90.6 % (94-98); tHb 14.6 g/dl (11.7-17.4)
[2022-07-17 14:43] VITALS: BP 132/77; TEMP 96.1
[2022-07-17] MEDS: XARELTO PO SCH (17:09)
--- NOTE | 2022-07-19 13:24 | HOLTER ---
PATIENT INFORMATION AND COMMENTS Attending Physician: DR. CHAHAL Indications: ARRHYTHMIAS, PAUSE __ Patient Medications: ALLOPURINOL, ATORVASTATIN, CARVEDILOL, CLONIDINE, QUINAPRIL __ Pre-procedure Summary: Protocol: Standard Heart Rate Started: 07/16/2022 Minimum: 60 BPM Weight: 216 LBS Ended: 07/17/2022 Maximum: 110 BPM Height: 67.5" Duration: 24 HOURS Average: 80 BPM _ INTERPRETATIONS/OBSERVATIONS: 1. BASIC RHYTHM: ATRIAL FIBRILLATION, RATE 60 BPM TO 110 BPM, AVERAGE 80 BPM 2. INFREQUENT PVC'S--TOTAL 1% OF BEATS SCANNED 3. TOTAL OF 4 PAUSES GREATER THAN 2.0 SECONDS--LONGEST 2.[address]-T WAVE CHANGES FROM BASELINE 5. ACTIVITY LOG NOT AVAILABLE MTDD
--- NOTE | 2022-07-22 10:11 | CONS ---
DATE OF CONSULTATION: 07/16/22 REASON FOR CONSULTATION: Congestive heart failure. HISTORY OF PRESENT ILLNESS: Mr. Cardozo was seen and examined with the nurse practitioner. The patient was admitted by hospitalized who requested consultation for congestive heart failure. The patient was seen in the emergency room for acute shortness of breath and had CHF. This was brought on by increased exertion for a few days while cutting up a tree. Denies any chest pain. No exertional chest discomfort. Mainly history was consistent with orthopnea, shortness of breath on minimal exertion. The patient was given IV Lasix in the emergency room to which he responded with 4L of 02. This morning the patient is feeling a lot better. REVIEW OF SYSTEMS: CONSTITUTIONAL: No night sweats. No fatigue, malaise, lethargy. No fever or chills. HEENT: Eyes: No visual changes. No eye pain. No eye discharge. ENT: No sinus drainage. No epistaxis. No sinus pain. No sore throat. No odynophagia. No ear pain. No congestion. RESPIRATORY: No cough, no congestion. No hemoptysis. No shortness of breath. CARDIOVASCULAR: No angina symptoms. No CHF symptoms. No atypical chest pain for CAD. No palpitations. No orthopnea. GASTROINTESTINAL: No abdominal pain. No nausea or vomiting. No diarrhea or constipation. No hematemesis. No hematochezia. GENITOURINARY: No urgency. No frequency. No dysuria. No hematuria. No obstructive symptoms. No discharge. No pain. No significant abnormal bleeding. MUSCULOSKELETAL: No musculoskeletal pain. No joint swelling. NEUROLOGICAL: No headache. No neck pain. No syncope. No seizures. No dizziness. PSYCHIATRIC: Not anxious. No depression. No suicidal thoughts. No homicidal thoughts. SKIN: No rash. No lesions. No wounds. ENDOCRINE: No unexplained weight loss. No weight gain. HEMATOLOGIC/LYMPHATIC: No anemia. No purpura. No petechiae. No prolonged or excessive bleeding. No palpable lymph nodes. PHYSICAL EXAMINATION: VITAL SIGNS: Heart rate 80/min. HEENT: Head normocephalic, atraumatic. Eyes: Extraocular muscles are intact. Pupils are equal, round and reactive to light and accommodation. Ears: No lesions. Nose appeared normal. Throat: No exudate or erythema. NECK: Supple. No JVD, no carotid bruit. No lymphadenopathy or thyromegaly. LUNGS: Decreased breath sounds. Good air entry with few crepitations at the bases. Clear to auscultation. Percussion note normal. Chest symmetrical. HEART: Rate is 80/min. S1, S2, no S3. No murmurs. No cyanosis or clubbing. No ascites. Pulses: Dorsalis pedis and posterior tibial pulses +1 to +2 bilaterally. ABDOMEN: Soft. Nontender. Bowel sounds active. No CVA tenderness. No mass felt. EXTREMITIES: Trace edema. Full range of motion of all extremities, equal. NEUROLOGIC: No focal deficit. Cranial nerves II through XII are grossly intact. No headache, no double vision or headache. SKIN: Not dry. Intact. Turgor - normal. LYMPHATIC: No palpable lymph nodes/no lymphedema. MUSCULOSKELETAL: Normal joints with no swelling. Muscle tone is normal. EKG - atrial fibrillation, nonspecific ST wave changes. Rate is around 70 to 80/min. ASSESSMENT: 1. History of CHF with acute bout of CHF with respiratory failure. 2. The patient has history of ischemic cardiomyopathy. 3. Obesity. 4. Dyslipidemia. PLAN: 1. Continue all the medication as before. 2. CHF education carried out. 3. Continue Lasix. 4. The patient is being followed by Dr. Quinonez and Dr. Hanson. Later on I was called in the evening that the patient had a pause of 3.5 seconds. I decreased the dose of Coreg to 12.5 from 25 mg twice a day to 12.5 twice a day. Will put a Holter Monitor. The patient was practically asymptomatic. The patient's T4, TSH is normal. Thanks for the referral, will follow. JOSE
--- NOTE | 2022-07-22 10:19 | CONS ---
DATE OF SERVICE: 07/17/22 CONSULT FOLLOWUP REASON FOR CONSULTATION: CHF HISTORY OF PRESENT ILLNESS: 81-year-old white male admitted with respiratory failure with CHF. The patient responded to IV Lasix. This morning he is feeling a lot better. REVIEW OF SYSTEMS: CONSTITUTIONAL: No night sweats. No fatigue, malaise, lethargy. No fever or chills. HEENT: Eyes: No visual changes. No eye pain. No eye discharge. ENT: No runny nose. No epistaxis. No sinus pain. No sore throat. No odynophagia. No ear pain. No congestion. RESPIRATORY: No cough, no congestion. No hemoptysis. CARDIOVASCULAR: No angina symptoms. No CHF symptoms. No atypical chest pain for CAD. No palpitations. No shortness of breath. GASTROINTESTINAL: No abdominal pain. No nausea or vomiting. No diarrhea or constipation. No hematemesis. No hematochezia. GENITOURINARY: No urgency. No frequency. No dysuria. No hematuria. No obstructive symptoms. No discharge. No pain. No significant abnormal bleeding. MUSCULOSKELETAL: No musculoskeletal pain. No joint swelling. No arthritis. NEUROLOGICAL: No headache. No neck pain. No syncope. No seizures. No dizziness. PSYCHIATRIC: Not anxious. No depression. No suicidal thoughts. No homicidal thoughts. SKIN: No rash. No lesions. No wounds. ENDOCRINE: No unexplained weight loss. No weight gain. HEMATOLOGIC/LYMPHATIC: No anemia. No purpura. No petechiae. No prolonged or excessive bleeding. No palpable lymph nodes. PHYSICAL EXAMINATION: VITALS: Oriented to time, place and person. Temperature 98, pulse 63, respiratory rate 18, BP 137/82, pulse ox 98% on room air. HEENT: Head normocephalic, atraumatic. Eyes: Extraocular muscles are intact. Pupils are equal, round and reactive to light and accommodation. Ears: No lesions. Nose appeared normal. Throat: No exudate or erythema. NECK: Supple. No JVD, no carotid bruit. No lymphadenopathy or thyromegaly. LUNGS: Decreased breath sounds but good air entry. Clear to auscultation. Percussion note normal. Chest symmetrical. HEART: S1, S2, no S3. No murmur. No cyanosis or clubbing. No ascites. Pulses: Dorsalis pedis and posterior tibial pulses +1 to +2 bilaterally. ABDOMEN: Soft. Nontender. Bowel sounds active. No CVA tenderness. No mass felt. EXTREMITIES: No pedal edema. Full range of motion of all extremities, equal. NEUROLOGIC: No focal deficit. Cranial nerves II through XII are grossly intact. No headache, no double vision or headache. SKIN: Not dry. Intact. Turgor - normal. LYMPHATIC: No palpable lymph nodes/no lymphedema. MUSCULOSKELETAL: Normal joints with no swelling. Muscle tone is normal. Telemetry strips examined. The patient has a rate of 70 to 80 per minute, one pause of 5 seconds noted. The patient was not symptomatic. All was acceptable except borderline potassium BNP pending. ABGs ordered and pending. It was reported with walking, three-step naturation dropped to 86%. The patient qualified for oxygen. RECOMMENDATIONS: 1. Lasix 20 or 40 mg p.o. q.a.m. 2. K-Tab 20 mEq p.o. daily. 3. Coreg is going to be reduced to 12.5 p.o. twice a day instead of 25 b.i.d. 4. This patient had Amlodipine 5 mg p.o. at h.s. 5. The patient is advised to continue Xarelto, Allopurinol, Atorvastatin, Clonidine and Quinapril as before. 6. Holter monitor is applied late in the evening yesterday so the patient is going to bring it back tomorrow. The patient's condition is stable. Advised not to drive until seen by the primary care. The patient is strongly advised not to get involved in activity with heavy exertion as he was doing before coming to the emergency room. The patient declined stress test or Dobutamine stress echo. The last one performed was [address] Singh. It is to be noted that the patient use to be on Lasix and potassium which was taken off. The patient educated about CHF. If the patient gains more than 2 lbs, advised to take extra Lasix, cut down on salt intake. Followup with primary care as instructed. Advised to followup with Dr. Quinonez. Echo done this hospitalization showed normal valvular structures. Near normal LV contractility with ejection fraction 50 to 55%. LVH markedly enlarged left atrial cavity. FINAL DIAGNOSIS: 1. CONGESTIVE HEART FAILURE 2. ATRIAL FIBRILLATION WITH NORMAL VENTRICULAR RESPONSE WITH PAUSE NOTED, ONE 3.5 SECONDS. 3. RESPIRATORY INSUFFICIENCY WITH CHRONIC LUNG DISEASE, NEVER SMOKED. 4. OBESITY. 5. HYPERTENSION. 6. DYSLIPIDEMIA. ADDENDUM: The patient will have home oxygen, rule out sleep apnea exists. Thanks for the referral. cc: Dr. Hanson. TIME SPENT: Extensive - 80 minutes MTDD
== END 2022-07-17 17:30 | disposition home or self-care (01) | DRG 291 ==
LOC: ED 12:28 → MEDSURG A 15:04
PROVIDERS: ADMIT Surgery; ATTEND Surgery
DX: I25.5 Ischemic cardiomyopathy; I10 Essential (primary) hypertension; E66.9 Obesity, unspecified; I48.91 Unspecified atrial fibrillation; Z82.49 Family history of ischemic heart disease and other diseases of the circulatory system; R74.8 Abnormal levels of other serum enzymes; Z99.81 Dependence on supplemental oxygen; Z79.899 Other long term (current) drug therapy; D53.9 Nutritional anemia, unspecified; Z51.81 Encounter for therapeutic drug level monitoring; I25.10 Atherosclerotic heart disease of native coronary artery without angina pectoris; Z20.822 Contact with and (suspected) exposure to COVID-19; I50.9 Heart failure, unspecified; R17 Unspecified jaundice; J96.00 Acute respiratory failure, unspecified whether with hypoxia or hypercapnia; R06.02 Shortness of breath; Z79.01 Long term (current) use of anticoagulants; E87.6 Hypokalemia; E78.5 Hyperlipidemia, unspecified; Z68.34 Body mass index [BMI] 34.0-34.9, adult